=== PATIENT | female | born 1950 | race Caucasian/White ===

== ENCOUNTER 2024-09-16 16:11 | Inpatient (IN) | payer MEDICARE, MEDICAID ==
[~2024-09-16] VITALS: Ht 172.7 cm; Wt 85.1 kg
--- NOTE | 2024-09-16 16:22 | ECG ---
[facility] Test Date: 2024-09-16 Test Time: 16:10:09 Pat Name: BERT STRONG Department: ED Room: [address] [place] [address] Gender: F [employer] Set Up Operator: gp : 1950 Requested By: ROMI TA Order Number: [id number] Reading MD: Alec Lamas Measurements Intervals [place] Rate: 54 P: 50 FL: 163 QRS: 16 QRSD: 108 T: 128 QT: 426 QTc: 404 Interpretive Statements Sinus rhythm Repol abnrm suggests ischemia, lateral leads Baseline wander in lead(s) II,III,aVR,aVF,V1,V2,V3,V4,V5,V6 Electronically Signed On 09-16-2024 21:05:55 PDT by Alec Lamas Please click the below link to view image of tracing.
--- NOTE | 2024-09-16 16:31 | ED.PDOC ---
HPI (NEURO) HPI Comments 74y F who presents to the ED via EMS for chief complaint of confusion. Per EMS, pt is resident at [facility] and states pt has been having increasing confusion at facility over the past 2 days. Pt has been having difficultly with activities of daily living and EMS noted pt had labs 1 days prior which showed UTI for which she was placed on antibiotics. Pt continued to be in altered state and EMS was called. EMS upon arrival noted pt is [id number] and pt was placed on 2 L via nc due to low 02 saturation. Pt has history of CVA with R sided deficits. Pt now in the ED, otherwise denies chest pain, shortness of breath, fever, chills, headache, nausea, vomiting or dizziness. Pt otherwise denies any other symptoms at this time. Time Seen by MD: 16:27 Reviewed Notes: Nurses Notes, Telemetry Nurse Notes, Medications, Allergies (NKDA) Information Source: Patient, Emergency Med Personnel Mode of Arrival: EMS Brought in by: EMS Severity: Moderate Dizziness/Weakness Severity: Unable to do activities Headache Severity: None Timing: Hours Duration: Since onset Prehospital treatment: Oxygen Weakness Location: Generalized Onset: At rest Circumstances: Spontaneous Symptoms: Weakness History of: CVA, DM, Hypertension Modifying factors: Nothing Associated Signs and Symptoms: Weakness Past Medical History PAST MEDICAL HISTORY: COPD, CVA, DM, HTN Surgical History: Cholecystectomy, Hernia Repair [employer]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 Hx Family History Family History: Reviewed,noncontributory to illness Social History Smoker: Non-Smoker Alcohol: Denies ETOH Use Drugs: Denies Drug Use Lives In: [facility] Constitutional: reports: malaise, weakness; denies: chills, diaphoresis, fatigue, fever, sweats, others EENTM: denies: blurred vision, double vision, ear bleeding, ear discharge, ear drainage, ear pain, ear ringing, eye pain, eye redness, hearing loss, mouth pain, mouth swelling, nasal discharge, nose bleeding, nose congestion, nose pain, photophobia, tearing, throat pain, throat swelling, voice changes, others Respiratory: denies: cough, hemoptysis, orthopnea, SOB at rest, shortness of breath, SOB with excertion, stridor, wheezing, others Cardiovascular: denies: chest pain, dizzy spells, diaphoresis, Dyspnea on exertion, edema, irregular heart beat, left arm pain, lightheadedness, pal pitations, PND, syncope, others Gastrointestinal: denies: abdomen distended, abdominal pain, blood streaked bowels, constipated, diarrhea, dysphagia, difficulty swallowing, hematemesis, melena, nausea, poor appetite, poor fluid intake, rectal bleeding, rectal pain, vomiting, others Genitourinary: denies: abnormal vagina bleeding, burning, dyspareunia, dysuria, flank pain, frequency, hematuria, incontinence, pain, , vagina discharge, urgency, others Neurological: denies: dizziness, fainting, headache, left sided numbness, left sided weakness, numbness, paresthesia, pre-existing deficit, right sided numbness, right sided weakness, seizure, speech problems, tingling, tremors, weakness, others Musculoskeletal: denies: back pain, gout, joint pain, joint swelling, muscle pain, muscle stiffness, neck pain, others Integumetry: denies: bruises, change in color, change in hair/nails, dryness, laceration, lesions, lumps, rash, wounds, others Allergic/Immunocompromised: denies: Difficulty Healing, Frequent Infections, Hives, Itching, others Hematologic/Lymphatic: denies: anemia, blood clots, easy bleeding, easy b ruising, swollen glands, others Endocrine: denies: excessive hunger, excessive sweating, excessive thirst, excessive urination, flushing, intolerance to cold, intolerance to heat, unexplained weight gain, unexplained weight loss, others Psychiatric: denies: anxiety, bipolar disorder, depression, hopeless, panic disorder, schizophrenia, sleepless, suicidal, others All Other Systems: Reviewed and Negative Physical Exam General Appearance: Moderate Distress HEENT: Normal ENT Inspection, Pharynx Normal, TMs Normal Neck: Full Range of Motion, Non-Tender, Normal, Normal Inspection Respiratory: Chest Non-Tender, Lungs Clear, No Accessory Muscle Use, Normal Breath Sounds, Respiratory Distress Cardiovascular: No Edema, No JVD, No Murmur, No Gallop, Normal Peripheral Pulses, Regular Rate/Rhythm Breast Exam: Deferred Gastrointestinal: No Organomegaly, Non Tender, No Pulsatile Mass, Normal Bowel Sounds, Soft Genitalia: Deferred Pelvic: Deferred Rectal: Deferred Extremities: No calf tenderness, Normal capillary refill, No pedal edema Musculoskeletal : Apperance: Normal Neurologic: experience specialist II-XII nml as Tested, Motor Weakness, Normal Affect, Normal Mood, No Sensory Deficits, Other (Lethargic) Cerebellar Function: Normal Reflexes: Normal Skin: Dry, Pallor, Warm Lymphatic: No Adenopathy EKG EKG : Pulse Rate (adult): 54 [place]: Normal Cardiac Rhythm: NSR Block: None Hypertrophy: None ST: Normal Was a procedure done? Was a procedure done?: No Differential Diagnosis (SZ) Seizure: N/A General Weakness: Anemia, CVA, Dehydration, Electrolyte imbalance, Encephalopathy, Hypoglycemia, Hypotension, TIA, Other (UTI, urosepsis) X-Ray, Labs, Meds, VS Vital Signs Date Time Temp Pulse Resp B/P (MAP) Pulse Ox O2 Delivery O2 Flow Rate FiO2 09/16/24 18:00 54 11 142/56 (84) 97 09/16/24 17:10 57 09/16/24 16:48 95 Nasal Cannula* 2 28 09/16/24 16:48 98.3 60 16 144/62 (89) 95 98.3 09/16/24 16:31 54 09/16/24 16:23 97.1 56 16 148/64 (92) 93 97.1 09/16/24 16:11 54 Lab Test 09/16/24 19:00 09/16/24 16:53 Range/Units Urine Color Yellow Yellow Urine Clarity Turbid H Clear Urine pH 5.5 5.0-9.0 Urine Specific [place] 1.026 1.001-1.035 Urine Protein Trace H Negative Urine Ketones Negative Negative Urine Blood Negative Negative /uL Urine Nitrite Negative Negative Urine Bilirubin Negative Negative Urine Urobilinogen Normal Negative mg/dL Urine Leukocyte Esterase 3+ Negative /uL Urine RBC 6 0 - 4 /hpf Urine Microscopic WBC 86 H 0-5 /HPF Urine Squamous Epithelial Cells Few <5 /hpf Urine Bacteria Many H None Seen /hpf Urine Hyaline Casts Few 0 - 2 /lpf Urine Glucose Normal Normal mg/dL White Blood Count 10.3 4.4-10.8 10^3/uL Red Blood Count 4.83 4.0-5.20 10^6/uL Hemoglobin 14.7 12.2-16.2 g/dL Hematocrit 44.4 36.0-46.0 % Mean Corpuscular Volume 91.9 80.0-100.0 fL Mean Corpuscular Hemoglobin 30.3 28.0-32.0 pg Mean Corpuscular Hemoglobin Concent 33.0 32.0-36.0 g/dL Red Cell Distribution Width 13.3 11.8-14.3 % Platelet Count 354 140-450 10^3/uL Mean Platelet Volume 8.0 6.9-10.8 fL Neutrophils (%) (Auto) 63.6 37.0-80.0 % Lymphocytes (%) (Auto) 26.2 10.0-50.0 % Monocytes (%) (Auto) 6.6 0.0-12.0 % Eosinophils (%) (Auto) 2.8 0.0-7.0 % Basophils (%) (Auto) 0.8 0.0-2.0 % Neutrophils # (Auto) 6.6 1.6-8.6 10 ^3/uL Lymphocytes # (Auto) 2.7 0.4-5.4 10 ^3/uL Monocytes # (Auto) 0.7 0-1.3 10 ^3/uL Eosinophils # (Auto) 0.3 0-0.8 10 ^3/uL Basophils # (Auto) 0.1 0-0.2 10 ^3/uL Nucleated Red Blood Cells 0.2 % D-Dimer, Quantitative Pending Sodium Level 142 136-145 mmol/L Potassium Level 4.0 3.5-5.1 mmol/L Chloride Level 107 98-107 mmol/L Carbon Dioxide Level 27 20-31 mmol/L Anion Gap 8 5-15 Blood Urea Nitrogen 29 H 9-23 mg/dL Creatinine 1.17 H 0.550-1.02 mg/dL Glomerular Filtration Rate Calc 49 >90 mL/min BUN/Creatinine Ratio 24.8 H 10.0-20.0 Serum Glucose 106 74-106 mg/dL Lactic Acid Level 0.8 0.4-2.0 mmol/L Calcium Level 10.0 8.7-10.4 mg/dL Total Bilirubin 0.2 0.2-1.0 mg/dL Aspartate Amino Transferase (AST) 12 L 13-40 U/L Alanine Aminotransferase (ALT) < 9 7-40 U/L Alkaline Phosphatase 80 46-116 U/L Total Protein 8.0 5.7-8.2 g/dL Albumin 4.4 3.2-4.8 g/dL Current Medications Medications (Trade) Dose Ordered Sig/Manasa Route Start Time Stop Time Status Last Admin Sodium Chloride 500 ml @ 500 mls/hr Q1H ONCE IVB 09/16/24 16:30 09/16/24 17:29 DC 09/16/24 18:14 TECHNIQUE: Frontal view of the chest. IMPRESSION: 1. No evidence of acute disease. The patient's CBC is within normal limits The chemistry panel is within normal limits The urine test is positive for UTI The patient is being admitted to the hospitalist Levaquin is being ordered IV piggyback We feel that this patient's altered mental status could be secondary to the UTI The patient was admitted Images Reviewed?: Images reviewed and evaluated by me Time of 1ST Reevaluation: 17:00 Reevaluation 1ST: Unchanged Patient Education/Counseling: Diagnosis, Treatment, Prognosis Family Education/Counseling: No Family Present Departure 1 Departure Time of Disposition: 21:02 Impression: Primary Impression: Sepsis secondary to UTI Additional Impression: Generalized weakness Disposition: ADMITTED INPATIENT Admit to: [facility] Condition: Fair Critical Care Note Critical Care Time?: No Stability Stability form required: Yes Unstable for transfer: Telemetry monitoring (Telemetry monitoring required), ED Physician Assesment (Clinical assesment) Heart Score Heart Score: Heart Score Response (Comments) Value History N/A 0 EKG N/A 0 Age N/A 0 Risk Factors N/A 0 Troponin N/A 0 Total 0 I personally scribed for ROMI TA MD ([email or web address]) on 09/16/24 at 16:31. Electronically submitted by Melissa Davila ([email or web address]). I personally scribed for ROMI TA MD ([email or web address]) on 09/16/24 at 17:01. Electronically submitted by Melissa Davila (Adelja [email or web address]). ROMI TA MD September 16, 2024 16:31
--- NOTE | 2024-09-16 16:43 | DVH ---
INDICATION: aloc TECHNIQUE: Frontal view of the chest. COMPARISON: None FINDINGS: Finding. The heart and mediastinal contours are grossly unremarkable. There is uncoiling an atheroscl erotic change thoracic aorta There is no evidence of pleural disease. The lungs are clear. The bon y structures of the chest are intact without fracture. IMPRESSION: 1. No evidence of acute disease.
[2024-09-16 16:48] VITALS: O2SAT 95
[2024-09-16 17:34] LABS: Basophils # (auto) 0.1 10 ^3/uL (0-0.2); Basophils % (auto) 0.8 % (0.0-2.0); Eosinophils # (auto) 0.3 10 ^3/uL (0-0.8); Eosinophils % (auto) 2.8 % (0.0-7.0); Hematocrit 44.4 % (36.0-46.0); Hemoglobin 14.7 g/dL (12.2-16.2); Lymphocytes # (auto) 2.7 10 ^3/uL (0.4-5.4); Lymphocytes % (auto) 26.2 % (10.0-50.0); Mean Corpuscular Hemoglobin 30.3 pg (28.0-32.0); Mean Corpuscular Volume 91.9 fL (80.0-100.0); Monocytes # (auto) 0.7 10 ^3/uL (0-1.3); Monocytes % (auto) 6.6 % (0.0-12.0); Neutrophils # (auto) 6.6 10 ^3/uL (1.6-8.6); Neutrophils % (auto) 63.6 % (37.0-80.0); Nucleated Red Blood Cells % 0.2 %; Platelet Count (auto) 354 10^3/uL (140-450); Red Blood Cells 4.83 10^6/uL (4.0-5.20); Red Cell Distribution Width 13.3 % (11.8-14.3); White Blood Cell 10.3 10^3/uL (4.4-10.8)
[2024-09-16 17:38] LABS: Albumin 4.4 g/dL (3.2-4.8); Alkaline Phosphatase 80 U/L (46-116); Anion Gap 8 (5-15); BUN/Creatinine Ratio 24.8 (10.0-20.0); Carbon Dioxide 27 mmol/L (20-31); Chloride 107 mmol/L (98-107); Sodium 142 mmol/L (136-145)
[2024-09-16 18:05] LABS: Alanine Aminotransferase < 9 U/L (7-40); Aspartate Aminotransferase 12 U/L (13-40); Bilirubin, Total 0.2 mg/dL (0.2-1.0); Blood Urea Nitrogen 29 mg/dL (9-23); Glucose 106 mg/dL (74-106)
[2024-09-16] MEDS: SODIUM CHLORIDE 0.9% 500 ML IVB ONE (18:14)
[2024-09-16 19:28] LABS: Urine Bacteria MANY /hpf (None Seen); Urine Blood Negative /uL (Negative); Urine Clarity Turbid (Clear); Urine Color Yellow (Yellow); Urine Hyaline Cast FEW /lpf (0 - 2); Urine Protein, UAD TRACE (Negative); Urine Specific Gravity 1.026 (1.001-1.035); Urine Squamous Epithelial Cell FEW /hpf (<5); Urine Urobilinogen Normal (Negative); Urine WBC 86 /HPF (0-5); Urine pH 5.5 (5.0-9.0)
[2024-09-16] MEDS ORDERED: NITROGLYCERIN 0.4 MG SL TAB SL PRN (19:45)
[2024-09-16] MEDS ORDERED: DOCUSATE SOD 100 MG CAP PO PRN (19:45)
[2024-09-16] MEDS ORDERED: ONDANSETRON HCL 4 MG/2 ML VIAL IV PRN (19:45)
--- NOTE | 2024-09-16 19:51 | DVHHP2 ---
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 Her surgical history includes vascular surgery and hernia repair. She resides at [facility] and was brought to the ED by paramedics due to increased confusion and a decline in her ability to perform activities of daily living over the past two days. Staff at the facility noted hypoxia, prompting transfer. On arrival, the patient was placed on 2 L nasal cannula. She was alert but disoriented during the encounter, with limited recall. She denied chest pain or dyspnea when able to respond. Facility staff reported the presence of a buttocks and upper thigh wound, which was confirmed on physical exam. Initial labs showed a creatinine of 1.17 with BUN 29, unremarkable CBC, and lactate within normal limits. Chest X- ray did not reveal acute pathology. Urinalysis is pending. She will be admitted for further workup of acute encephalopathy and hypoxia Past Medical History see hpi above Past Surgical History see hpi above Family History Reviewed, non-contributory to the management of this case. Past Social History unable to assess d/t mental status Review of Systems Review of Systems unable to assess ros d/r mental state Neurological: Confusion Allergies: Coded Allergies: NO KNOWN ALLERGIES (Unverified , 09/16/24) Exam Vital Signs Vital Signs Date Time Temp Pulse Resp B/P (MAP) Pulse Ox O2 Delivery O2 Flow Rate FiO2 09/16/24 18:00 54 11 142/56 (84) 97 09/16/24 16:48 Nasal Cannula* 2 28 09/16/24 16:48 98.3 98.3 General Appearance: Alert, Other (answer some questions) HEENT: Atraumatic, PERRLA, EOMI, Mucous membr. moist/pink Respiratory: Clear to auscultation, Normal air movement Cardiovascular: Regular rate, Normal S1, Normal S2, No murmurs Abdominal: Other (obsese abd no pain ) Extremities: No clubbing, No cyanosis, No edema Skin: No rashes (pt with wound to buttocks per nursing exam but not able to assess on my exam wound care consult ) Neuro: Other (bedbound ) Labs/Xrays Chest x-ray unremarkable I reviewed labs, imaging CT scan abdomen pelvis, EKG and all diagnostic studies on this patient from ED records and the medical chart Labs Test 09/16/24 19:00 09/16/24 16:53 Range/Units White Blood Count 10.3 4.4-10.8 10^3/uL Red Blood Count 4.83 4.0-5.20 10^6/uL Hemoglobin 14.7 12.2-16.2 g/dL Hematocrit 44.4 36.0-46.0 % Mean Corpuscular Volume 91.9 80.0-100.0 fL Mean Corpuscular Hemoglobin 30.3 28.0-32.0 pg Mean Corpuscular Hemoglobin Concent 33.0 32.0-36.0 g/dL Red Cell Distribution Width 13.3 11.8-14.3 % Platelet Count 354 140-450 10^3/uL Mean Platelet Volume 8.0 6.9-10.8 fL Neutrophils (%) (Auto) 63.6 37.0-80.0 % Lymphocytes (%) (Auto) 26.2 10.0-50.0 % Monocytes (%) (Auto) 6.6 0.0-12.0 % Eosinophils (%) (Auto) 2.8 0.0-7.0 % Basophils (%) (Auto) 0.8 0.0-2.0 % Neutrophils # (Auto) 6.6 1.6-8.6 10 ^3/uL Lymphocytes # (Auto) 2.7 0.4-5.4 10 ^3/uL Monocytes # (Auto) 0.7 0-1.3 10 ^3/uL Eosinophils # (Auto) 0.3 0-0.8 10 ^3/uL Basophils # (Auto) 0.1 0-0.2 10 ^3/uL Nucleated Red Blood Cells 0.2 % Sodium Level 142 136-145 mmol/L Potassium Level 4.0 3.5-5.1 mmol/L Chloride Level 107 98-107 mmol/L Carbon Dioxide Level 27 20-31 mmol/L Anion Gap 8 5-15 Blood Urea Nitrogen 29 H 9-23 mg/dL Creatinine 1.17 H 0.550-1.02 mg/dL Glomerular Filtration Rate Calc 49 >90 mL/min BUN/Creatinine Ratio 24.8 H 10.0-20.0 Serum Glucose 106 74-106 mg/dL Lactic Acid Level 0.8 0.4-2.0 mmol/L Calcium Level 10.0 8.7-10.4 mg/dL Total Bilirubin 0.2 0.2-1.0 mg/dL Aspartate Amino Transferase (AST) 12 L 13-40 U/L Alanine Aminotransferase (ALT) < 9 7-40 U/L Alkaline Phosphatase 80 46-116 U/L Total Protein 8.0 5.7-8.2 g/dL Albumin 4.4 3.2-4.8 g/dL Assessment/Plan Assessment/Plan 74-year-old female with history of CVA and COPD presenting with acute encephalopathy and hypoxia for further diagnostic evaluation and management. Acute hypoxic respiratory failure Likely multifactorial: possible COPD exacerbation, infection, or deconditioning Plan: Continue O2 via nasal cannula to maintain sats >92% Chest X-ray: no infiltrate or consolidation D-dimer ordered to assess for PE Consider CT angiogram chest if elevated Monitor oxygen requirements and respiratory status ordered duoneb prn Acute encephalopathy metabolic New-onset confusion over past two days No focal neurologic deficits currently Plan: Monitor mental status daily UA, urine culture pendingpossible infectious source Basic metabolic panel daily to trend electrolytes Consider head CT if mental status worsens ordered antibotics vanco and zosyn for now acute Buttocks and thigh wound likely early pressure injury/cellulitis Wound noted to buttocks and upper thigh Plan: Wound care consult ordered Daily wound assessment and dressing changes Consider empiric antibiotics if signs of cellulitis progress Monitor for fever, leukocytosis ordered vanco and zosyn for now acute History of CVA with right-sided weakness Chronic condition, currently at baseline Plan: Fall precautions in place Monitor for new neurologic deficits chronic problems COPD Diabetes Mellitus Type 2 ISS Hypertension FEN/PPx Fluids: IV hydration with NS at maintenance rate Nutrition: Regular diet as tolerated DVT Prophylaxis: SCDs; pharmacologic if no contraindication GI Prophylaxis: Pantoprazole 40 mg IV daily for stress ulcer prevention plan admit to medicine Plan discussed with: Other (ed records ) My Orders Orders - KEYON DUNCAN DNP Procedure Category Date Status Time Regular Diet DIET 09/17/24 Transmitted Breakfast * Wound Consult CONS 09/16/24 Transmitted Insert Ross Catheter WAN 09/16/24 In Process 19:13 Date of Service: September 16, 2024 Billing Provider: KEYON DUNCAN DNP Common Visit Codes: [id number] INP/OBS CARE (HIGH) KEYON DUNCAN DNP September 16, 2024 19:51
[2024-09-16 20:00] VITALS: PULSE 57; RESP 13; O2SAT 96
[2024-09-16] MEDS ORDERED: VANCOMYCIN PER PHARMACY 0 MG IV SCH (20:15)
[2024-09-16] MEDS: PIPERACILLIN-TAZOB 3.375GM 100 ML IV ONE (20:21)
[2024-09-16] MEDS ORDERED: ALBUTEROL SULF 2.5 MG/0.5ML(0.5%) NEB SOLN NEB PRN (20:45)
[2024-09-16] MEDS ORDERED: IPRATROPIUM BROM 0.5 MG/2.5ML INH SOL NEB PRN (20:45)
[2024-09-16 21:22] VITALS: BP 133/42; PULSE 56; RESP 14; TEMP 98.4; O2SAT 96
[2024-09-17] VITALS (12 sets, daily range): BP systolic 117–151; BP diastolic 46–68; PULSE 56–78; RESP 17–19; TEMP 97.2–97.9; O2SAT 96–100
[2024-09-17] MEDS: MORPHINE SULFATE INJ 2 MG/ml SYRG IV PRN (00:24)
[2024-09-17] MEDS: SODIUM CHLORIDE 0.9% 1,000 ML IV SCH (00:24)
[2024-09-17] MEDS: VANCOMYCIN 1GM/200ML PM 200 ML IV ONE (00:24)
[2024-09-17] MEDS ORDERED: METF-370 PO (01:58)
[2024-09-17] MEDS ORDERED: POTA-215 PO (01:58)
[2024-09-17] MEDS ORDERED: HYDR-4902 PO (01:58)
[2024-09-17] MEDS ORDERED: SERT25TA84 PO (01:58)
[2024-09-17] MEDS ORDERED: AMLO1TAB22 PO (01:58)
[2024-09-17] MEDS ORDERED: ASPI-543 PO (01:58)
[2024-09-17] MEDS ORDERED: DIPH2.5T73 PO (02:21)
[2024-09-17] MEDS: PIPERACILLIN-TAZOB 3.375GM 100 ML IV SCH (05:29)
[2024-09-17 06:12] LABS: Basophils # (auto) 0.1 10 ^3/uL (0-0.2); Basophils % (auto) 0.6 % (0.0-2.0); Eosinophils # (auto) 0.3 10 ^3/uL (0-0.8); Eosinophils % (auto) 2.9 % (0.0-7.0); Hemoglobin 12.8 g/dL (12.2-16.2); Lymphocytes # (auto) 2.1 10 ^3/uL (0.4-5.4); Lymphocytes % (auto) 21.4 % (10.0-50.0); Mean Corpuscular Hemoglobin 30.1 pg (28.0-32.0); Mean Corpuscular Hgb Conc. 32.8 g/dL (32.0-36.0); Mean Corpuscular Volume 91.8 fL (80.0-100.0); Monocytes # (auto) 0.7 10 ^3/uL (0-1.3); Monocytes % (auto) 7.2 % (0.0-12.0); Neutrophils # (auto) 6.7 10 ^3/uL (1.6-8.6); Neutrophils % (auto) 67.9 % (37.0-80.0); Nucleated Red Blood Cells % 0.1 %; Platelet Count (auto) 275 10^3/uL (140-450); Red Blood Cells 4.25 10^6/uL (4.0-5.20); Red Cell Distribution Width 13.5 % (11.8-14.3); White Blood Cell 9.9 10^3/uL (4.4-10.8)
[2024-09-17 06:23] LABS: Albumin 3.4 g/dL (3.2-4.8); Alkaline Phosphatase 60 U/L (46-116); Anion Gap 11 (5-15); BUN/Creatinine Ratio 22.8 (10.0-20.0); Blood Urea Nitrogen 21 mg/dL (9-23); Carbon Dioxide 21 mmol/L (20-31); Glucose 95 mg/dL (74-106); Total Protein 6.1 g/dL (5.7-8.2)
[2024-09-17 06:40] LABS: Alanine Aminotransferase < 9 U/L (7-40); Aspartate Aminotransferase < 8 U/L (13-40); Bilirubin, Total 0.3 mg/dL (0.2-1.0); Calcium 7.7 mg/dL (8.7-10.4); Chloride 113 mmol/L (98-107); Potassium 3.5 mmol/L (3.5-5.1); Sodium 145 mmol/L (136-145)
--- NOTE | 2024-09-17 13:48 | DVHPNRES ---
Progress Note Date Seen: September 17, 2024 Resident Creating Document: JOVAN SALAZAR RESIDENT Medical Necessity Reason Pt with a Central, PICC or Fol: No Subjective Review of Systems patient seen and examined at beside generalized weak alert oriented rightsided weakness ? residual no fever Objective vital signs Vital Sign Date Time Temp Pulse Resp B/P (MAP) Pulse Ox O2 Delivery O2 Flow Rate FiO2 09/17/24 13:14 97.9 62 17 117/46 (69) 97 97.9 09/17/24 10:00 Nasal Cannula 2.0 09/17/24 10:00 28 Total Intake and Output 09/16/24 09/16/24 09/17/24 15:00 23:00 07:00 Intake Total 600 ml 200 ml Output Total 300 ml Balance 600 ml -100 ml medications Current Medications Medications Dose Ordered Sig/Manasa Route Start Time Stop Time Status Last Admin Dose Admin Sodium Chloride 1,000 ml @ 120 mls/hr Q8H20M IV 09/16/24 19:45 09/17/24 12:25 120 MLS/HR Ondansetron HCl 4 mg Q4HP PRN IV 09/16/24 19:45 Docusate Sodium 100 mg BIDPRN PRN PO 09/16/24 19:45 Morphine Sulfate 2 mg Q4HPRN PRN IV 09/16/24 19:45 09/17/24 00:24 2 MG Nitroglycerin 0.4 mg Q5MINP PRN SL 09/16/24 19:45 Vancomycin HCl 0 ml @ 0 mls/hr UD IV 09/16/24 20:15 Piperacillin Sod/ Tazobactam Sod 100 ml @ 25 mls/hr Q8HR IV 09/17/24 06:00 09/17/24 05:29 25 MLS/HR Albuterol 2.5 mg Q4HPRN PRN NEB 09/16/24 20:45 Ipratropium Gilead 0.5 mg Q4HPRN PRN NEB 09/16/24 20:45 Examination General: Patient alert and oriented in person, place and time. Bed-bound HEENT: Normocephalic, atraumatic, moist mucous membranes Respiratory/pulmonary: Clear lungs bilaterally, vesicular murmurs present in almost all lung [place], no associated crackles or wheezes. Cardiovascular: Normal heart sounds S1 and S2 with no associated murmurs Abdomen: Abdomen nondistended, there is no pain to palpation in any of the abdominal quadrants, no palpable masses. Extremities: There is no peripheral edema present at the lower extremities. Peripheral Pulses: 3+ Radial (R). 3+ Radial (L). 3+ Dorsalis pedis (R). 3+ Dorsalis pedis(L) Skin: No rashes or pruritus, there is no sacral edema present at this time. Neurological: Intact cranial nerves with right-sided residual weakness, one out of five, left-sided weakness upper and lower extremity, 3/5. laboratory and microbiology Laboratory Tests 09/17/24 04:32 Test 09/17/24 04:32 Range/Units Serum Glucose 95 74-106 mg/dL Problem List/Assessment/Plan Problem List/Assessment/Plan UTI Acute metabolic encephalopathy due to above Acute on chronic hypoxic respiratory failure COPD, not exacerbation Diabetes mellitus type 2 Hypertension Deep tissue injury History of CVA, right-sided residual weakness Plan/recommendation -IV antibiotic ceftriaxone, pending urine culture, blood culture, respiratory culture. -chest x-ray no consolidation, continue nasal cannula 2 L, p.r.n. albuterol/ipratropium bromide nebulization if needed -head CT pending results -generalized weakness, dizziness: Pending B12, folic acid, TSH, vitamin-D day level. -hypertension: Resume home medication amlodipine -diabetes mellitus type 2: Pending HGB A1c -history of CVA: Pending CT scan, continue aspirin 81 mg p.o. daily -review CBC, CMP, urinalysis, chest x-ray. -DVT prophylaxis with enoxaparin Goals of care , discussed greater than 24 m, full code status. Plan discussed with Dr Christianson Plan discussed with: Patient, Other (RN) My Orders My Orders Orders - JOVAN SALAZAR RESIDENT Procedure Category Date Status Time Urine Bacterial BEENA 09/17/24 Logged Culture 13:39 Ceftriaxone Ivpb PHA 09/18/24 Transmitted Rocephin 09:00 Date of Service: September 17, 2024 Billing Provider: YAYA CHRISTIANSON MD Common Visit Codes: [id number] INP/OBS CARE(HIGH) JOVAN SALAZAR September 17, 2024 13:48 YAYA CHRISTIANSON MD September 18, 2024 15:41
[2024-09-17] MEDS ORDERED: ENOXAPARIN SOD 30 MG/0.3 ML SYRINGE SC ONE (15:30)
--- NOTE | 2024-09-17 16:48 | DVH ---
Procedure: CT HEAD WITHOUT CONTRAST Study Date and Requested Time: 09/17/2024 04:00 PM History: h/O CVA Comparison: None Dose: CTDI: 54.46 mGy DLP: 964.44 mGycm Technique: Multiplanar images obtained through the brain without intravenous contrast. Findings: Moderate diffuse brain atrophy. Mild to moderate chronic small vessel ischemic changes. Left-sided fr ontotemporal craniotomy. Status post left sided cavernous aneurysmal clipping with streak artifact fr om the aneurysmal clip limiting evaluation of the adjacent structures. Right parietal lobe hypodensity which may represent an area of infarct of unknown chronicity. There i s left anterior temporal lobe hypodensity which may represent an area of encephalomalacia. No hemor rhages, midline shift, or herniation. No evidence of hydrocephalus. The basal cisterns are patent. The pituitary gland, sella and parasellar regions are unremarkable. The cerebellar tonsils are in nor mal position. The cerebellum is unremarkable. The orbits and globes are unremarkable. Mild mucoperiosteal thickening of the maxillary sinuses. Oth erwise, the paranasal sinuses and mastoids are clear. There are no worrisome calvarial lesions. Impression: Right parietal lobe hypodensity which may represent an area of infarct of unknown chronicity with no prior imaging for comparison. Left anterior temporal lobe hypodensity which may represent an area of encephalomalacia status post l eft frontotemporal craniotomy with left sided cavernous region aneurysmal clip noted.
[2024-09-17] MEDS: ASPirin 81 mg TAB PO ONE (17:23)
[2024-09-17] MEDS: SERTRALINE HCL 50 MG TAB PO ONE (17:23)
[2024-09-17] MEDS: ENOXAPARIN SOD 40 MG/0.4 ML SYRINGE SC ONE (17:25)
[2024-09-17 17:47] LABS: Folate (Folic Acid) 9.61 ng/mL (>5.38)
[2024-09-18] VITALS (11 sets, daily range): BP systolic 109–160; BP diastolic 62–70; PULSE 70–80; RESP 14–20; TEMP 97.3–98; O2SAT 95–99
[2024-09-18 07:21] LABS: Basophils # (auto) 0.1 10 ^3/uL (0-0.2); Basophils % (auto) 0.7 % (0.0-2.0); Eosinophils # (auto) 0.4 10 ^3/uL (0-0.8); Eosinophils % (auto) 5.3 % (0.0-7.0); Hematocrit 38.5 % (36.0-46.0); Hemoglobin 12.7 g/dL (12.2-16.2); Lymphocytes % (auto) 23.8 % (10.0-50.0); Mean Corpuscular Hemoglobin 30.1 pg (28.0-32.0); Mean Corpuscular Volume 91.2 fL (80.0-100.0); Monocytes # (auto) 0.6 10 ^3/uL (0-1.3); Monocytes % (auto) 7.8 % (0.0-12.0); Neutrophils # (auto) 5.1 10 ^3/uL (1.6-8.6); Neutrophils % (auto) 62.4 % (37.0-80.0); Platelet Count (auto) 291 10^3/uL (140-450); Red Blood Cells 4.22 10^6/uL (4.0-5.20); Red Cell Distribution Width 13.2 % (11.8-14.3); White Blood Cell 8.2 10^3/uL (4.4-10.8)
[2024-09-18 07:32] LABS: Anion Gap 10 (5-15); Calcium 9.4 mg/dL (8.7-10.4); Carbon Dioxide 23 mmol/L (20-31); Sodium 144 mmol/L (136-145)
[2024-09-18 07:38] LABS: BUN/Creatinine Ratio 20.8 (10.0-20.0); Blood Urea Nitrogen 20 mg/dL (9-23); Glucose 99 mg/dL (74-106)
[2024-09-18 07:43] LABS: Chloride 111 mmol/L (98-107); Potassium 3.4 mmol/L (3.5-5.1)
[2024-09-18] MEDS: cefTRIAXone 1GM/50ML D5W 50 ML IV SCH (08:48)
[2024-09-18] MEDS: ENOXAPARIN SOD 40 MG/0.4 ML SYRINGE SC SCH (08:48)
[2024-09-18] MEDS: SERTRALINE HCL 50 MG TAB PO SCH (08:49)
[2024-09-18] MEDS: ASPirin-EC 81 mg tab PO SCH (08:49)
[2024-09-18] MEDS: ERGOCALCIFEROL 50,000 UNIT(1.25MG) CAP PO SCH (08:50)
[2024-09-18] MEDS: POTASSIUM EFFERVESENT TAB 25 MEQ PO ONE (08:50)
[2024-09-18] MEDS: amLODIPine BESYLATE 5 MG TAB PO SCH (08:51)
[2024-09-18] MEDS ORDERED: ENOXAPARIN SOD 30 MG/0.3 ML SYRINGE SC SCH (10:00)
--- NOTE | 2024-09-18 13:50 | DVHPNRES ---
Progress Note Date Seen: September 18, 2024 Resident Creating Document: JOVAN SALAZAR RESIDENT Medical Necessity Reason Pt with a Central, PICC or Fol: No Subjective Review of Systems patient seen and examined at beside generalized weak alert oriented rightsided weakness residual no fever 09/18/24: NO new comlains, bed bound, no fever, pending PT evaluation, pending social evaluation,, no diarrhea. 1 BM yesterday. Objective vital signs Vital Sign Date Time Temp Pulse Resp B/P (MAP) Pulse Ox O2 Delivery O2 Flow Rate FiO2 09/18/24 10:20 99 16 160/64 09/18/24 09:00 97.6 95 97.6 09/18/24 08:13 Room Air* 0 21 Total Intake and Output 09/17/24 09/17/24 09/18/24 15:00 23:00 07:00 Intake Total 475 ml 1000 ml Output Total 450 ml Balance 475 ml 550 ml medications Current Medications Medications Dose Ordered Sig/Manasa Route Start Time Stop Time Status Last Admin Dose Admin Sodium Chloride 1,000 ml @ 120 mls/hr Q8H20M IV 09/16/24 19:45 09/18/24 05:42 120 MLS/HR Ondansetron HCl 4 mg Q4HP PRN IV 09/16/24 19:45 Docusate Sodium 100 mg BIDPRN PRN PO 09/16/24 19:45 Morphine Sulfate 2 mg Q4HPRN PRN IV 09/16/24 19:45 09/18/24 09:50 2 MG Nitroglycerin 0.4 mg Q5MINP PRN SL 09/16/24 19:45 Albuterol 2.5 mg Q4HPRN PRN NEB 09/16/24 20:45 Ipratropium [place] 0.5 mg Q4HPRN PRN NEB 09/16/24 20:45 Ceftriaxone Sodium 50 ml @ 100 mls/hr DAILY@09 IV 09/18/24 09:00 09/18/24 08:48 100 MLS/HR Enoxaparin Sodium 30 mg DAILY SC 09/18/24 10:00 UNV Enoxaparin Sodium 40 mg DAILY SC 09/18/24 10:00 09/18/24 08:48 40 MG Amlodipine Besylate 5 mg DAILY PO 09/18/24 10:00 09/18/24 08:51 5 MG Aspirin 81 mg DAILY PO 09/18/24 10:00 09/18/24 08:49 81 MG Sertraline HCl 25 mg DAILY PO 09/18/24 10:00 09/18/24 08:49 25 MG Ergocalciferol 50,000 unit Q7D PO 09/18/24 08:30 09/18/24 08:50 50,000 UNIT Examination General: Patient alert and oriented in person, place and time. Bed-bound HEENT: Normocephalic, atraumatic, moist mucous membranes Respiratory/pulmonary: Clear lungs bilaterally, vesicular murmurs present in almost all lung de la torre, no associated crackles or wheezes. Cardiovascular: Normal heart sounds S1 and S2 with no associated murmurs Abdomen: Abdomen nondistended, there is no pain to palpation in any of the abdominal quadrants, no palpable masses. Extremities: There is no peripheral edema present at the lower extremities. Peripheral Pulses: 3+ Radial (R). 3+ Radial (L). 3+ Dorsalis pedis (R). 3+ Dorsalis pedis(L) Skin: No rashes or pruritus, there is no sacral edema present at this time. Neurological: Intact cranial nerves with right-sided residual weakness, one out of five, left-sided weakness upper and lower extremity, 3/5. laboratory and microbiology Laboratory Tests 09/18/24 05:58 Test 09/18/24 05:58 Range/Units Serum Glucose 99 74-106 mg/dL Microbiology Date/Time Source Procedure Growth Status 09/17/24 18:32 Nose MRSA Screen - Final Complete 09/16/24 19:00 Voided Urine Urine Culture - Preliminary Resulted 09/16/24 16:53 Blood Blood Culture - Preliminary NO GROWTH AFTER 24 HOURS OF INCUBATION. Resulted Problem List/Assessment/Plan Problem List/Assessment/Plan UTI Acute metabolic encephalopathy due to above Acute on chronic hypoxic respiratory failure COPD, not exacerbation Diabetes mellitus type 2 Hypertension Deep tissue injury History of CVA, right-sided residual weakness Plan/recommendation -IV antibiotic ceftriaxone, culture negative till now -chest x-ray no consolidation, continue nasal cannula 2 L, p.r.n. albuterol/ipratropium bromide nebulization if needed -head CT : no acute intra cranial abnormality -generalized weakness, dizziness: rolf vitamin d -hypertension: Resume home medication amlodipine -history of CVA: continue aspirin 81 mg p.o. daily -review CBC, CMP, urinalysis, chest x-ray. -DVT prophylaxis with enoxaparin Goals of care , discussed greater than 24 m, full code status. Continue current management, pending PT evaluation, pending treated service evaluation for DC planning. As per medical record patient resides at [facility], we will need DC planning for discharge disposition. Plan discussed with Dr Christianson Plan discussed with: Patient, Other (RN) My Orders My Orders Orders - JOVAN SALAZAR Procedure Category Date Status Time Head Without Contrast CT 09/17/24 Resulted 15:18 Enoxaparin Sodium PHA 09/18/24 In Process (Lovenox) 10:00 Amlodipine Tablet PHA 09/18/24 In Process (Norvasc Tablet) 10:00 Aspirin Enteric PHA 09/18/24 In Process Coated Tablet 10:00 Sertraline Hcl PHA 09/18/24 In Process (Zoloft) 10:00 * Bridge Maintainer CONS 09/17/24 Transmitted Consult Pt Request For Service PT 09/17/24 Logged 16:38 Cleanse Wound With WAN 09/17/24 In Process Wound Clean 14:45 Apply Z-Guard WAN 09/17/24 In Process 14:45 * Dietary Consult CONS 09/17/24 Transmitted 18:48 Ergocalciferol PHA 09/18/24 In Process (Vitamin D 50,000 08:30 Dietary Evaluation Review Recommendations by RD: Protein Supplementation Comments: 1) Initiate Pro-Stat @ 30 mL qd 2) Initaite Ensure Enlive bid. Encourage optimal PO intake 3) Initiate vitamin C @ 500 mg bid and zinc sulfate @ 220 mg qd for 7-10 days 4) Follow-up with pulmonology and cardiology 4) Continue to monitor I&O, labs, and skin integrity Expected Outcomes/Goals: 1) appetite and labs to improve 2) wound to improve 3) follow-up in 3-5 days Date of Service: September 18, 2024 Billing Provider: YAYA CHRISTIANSON MD Common Visit Codes: [id number] INP/OBS CARE(HIGH) JOVAN SALAZAR September 18, 2024 13:49 YAYA CHRISTIANSON MD September 18, 2024 15:48
[2024-09-18] MEDS: MELATONIN 5 MG TAB PO SCH (22:02)
[2024-09-19] VITALS (10 sets, daily range): BP systolic 127–164; BP diastolic 55–77; PULSE 68–89; RESP 16–18; TEMP 97.3–98.1; O2SAT 92–98
[2024-09-19 06:35] LABS: Sodium 143 mmol/L (136-145)
[2024-09-19 06:36] LABS: Anion Gap 9 (5-15); Calcium 9.1 mg/dL (8.7-10.4); Carbon Dioxide 24 mmol/L (20-31)
[2024-09-19 06:41] LABS: BUN/Creatinine Ratio 15.2 (10.0-20.0); Blood Urea Nitrogen 12 mg/dL (9-23); Glucose 105 mg/dL (74-106)
[2024-09-19 06:50] LABS: Chloride 110 mmol/L (98-107)
[2024-09-19] MEDS: POTASSIUM CHL 20 Meq TABLET PO ONE (11:23)
[2024-09-19] MEDS: POTASSIUM EFFERVESENT TAB 25 MEQ PO ONE (11:24)
[2024-09-19] MEDS: HYDROcodone-ACET 5/325MG TAB PO PRN (16:50)
--- NOTE | 2024-09-19 17:38 | DVHPNRES ---
Progress Note Date Seen: September 19, 2024 Resident Creating Document: JHAJMARILU Shearer RESIDENT Medical Necessity Reason Pt with a Central, PICC or Fol: No Subjective Review of Systems patient seen and examined at beside A/O X 4 reports weakness Physical therapy evaluated the patient, she was not able to transfer to chair because of the pain Reported 3 bowel movements No abdominal Pain, nausea, vomiting No chest pain, shortness of breath Objective vital signs Vital Sign Date Time Temp Pulse Resp B/P (MAP) Pulse Ox O2 Delivery O2 Flow Rate FiO2 09/19/24 17:00 97.7 76 18 138/55 (82) 93 97.7 09/19/24 10:00 Nasal Cannula* 2 28 Total Intake and Output 09/18/24 09/18/24 09/19/24 15:00 23:00 07:00 Intake Total 798 ml 1240 ml Output Total 1000 ml 700 ml Balance -202 ml 540 ml medications Current Medications Medications Dose Ordered Sig/Manasa Route Start Time Stop Time Status Last Admin Dose Admin Ondansetron HCl 4 mg Q4HP PRN IV 09/16/24 19:45 Morphine Sulfate 2 mg Q4HPRN PRN IV 09/16/24 19:45 09/19/24 09:27 2 MG Ceftriaxone Sodium 50 ml @ 100 mls/hr DAILY@09 IV 09/18/24 09:00 09/19/24 09:24 100 MLS/HR Enoxaparin Sodium 30 mg DAILY SC 09/18/24 10:00 UNV Enoxaparin Sodium 40 mg DAILY SC 09/18/24 10:00 09/19/24 09:26 40 MG Amlodipine Besylate 5 mg DAILY PO 09/18/24 10:00 09/19/24 09:25 5 MG Aspirin 81 mg DAILY PO 09/18/24 10:00 09/19/24 09:26 81 MG Sertraline HCl 25 mg DAILY PO 09/18/24 10:00 09/19/24 09:25 25 MG Ergocalciferol 50,000 unit Q7D PO 09/18/24 08:30 09/18/24 08:50 50,000 UNIT Melatonin 5 mg HS PO 09/18/24 22:00 09/18/24 22:02 5 MG Acetaminophen/ Hydrocodone Bitart 1 tab Q4HPRN PRN PO 09/19/24 11:00 09/19/24 16:50 1 TAB Examination Constitutional: Patient is alert and oriented x4 and does not appear to be in any acute distress Gen - no pallor, no icterus, no cyanosis, no clubbing, no LAD, no edema . Skin - Patients skin is warm and dry.. HEENT - normocephalic, atraumatic, moist mucous membranes. Neck - full ROM, no LAD, no JVD Pulmonary - B/L equal breath sounds. no crackles , no wheezing cardiovascular - regular S1,S2 heard. no murmurs heard. GI - soft, nontender abdomen. no hepatospleenomegaly. Bowel sounds normoactive Neurological - left upper and lower extremity strength 4/5, right lower extremity strength 4/5, right upper extremity strength 3/5 no facial droop, normal speech, no tremor, no sensory deficiets. laboratory and microbiology Laboratory Tests 09/19/24 04:56 09/18/24 05:58 Test 09/19/24 04:56 Range/Units Serum Glucose 105 74-106 mg/dL Microbiology Date/Time Source Procedure Growth Status 09/17/24 18:32 Nose MRSA Screen - Final Complete 09/16/24 19:00 Voided Urine Urine Culture - Final Complete 09/16/24 16:53 Blood Blood Culture - Preliminary NO GROWTH AFTER 72 HOURS OF INCUBATION. Resulted Problem List/Assessment/Plan Problem List/Assessment/Plan UTI Acute metabolic encephalopathy due to above, resolving Acute on chronic hypoxic respiratory failure COPD, not exacerbation Diabetes mellitus type 2 Hypertension Deep tissue injury History of CVA, right-sided residual weakness Plan/recommendation -IV antibiotic ceftriaxone, culture negative till now -chest x-ray no consolidation, continue nasal cannula 2 L, p.r.n. albuterol/ipratropium bromide nebulization if needed -head CT : no acute intra cranial abnormality -hypertension: Resume home medication amlodipine -history of CVA: continue aspirin 81 mg p.o. daily -review CBC, CMP, urinalysis, chest x-ray. -DVT prophylaxis with enoxaparin Goals of care , discussed greater than 24 m, full code status. As per medical record patient resides at [facility], we will need DC planning for discharge disposition. Plan discussed with Dr Robert Thao discussed with: Patient, Other (RN ( Monika )) My Orders My Orders Orders - MARILU MARTINEZ RESIDENT Procedure Category Date Status Time Hydrocodone-Acet PHA 09/19/24 In Process 5/325mg Tab ([place] 11:00 Dietary Evaluation Review Recommendations by RD: Protein Supplementation Comments: 1) Initiate Pro-Stat @ 30 mL qd 2) Initaite Ensure Enlive bid. Encourage optimal PO intake 3) Initiate vitamin C @ 500 mg bid and zinc sulfate @ 220 mg qd for 7-10 days 4) Follow-up with pulmonology and cardiology 4) Continue to monitor I&O, labs, and skin integrity Expected Outcomes/Goals: 1) appetite and labs to improve 2) wound to improve 3) follow-up in 3-5 days Date of Service: September 19, 2024 Billing Provider: YAYA CHRISTIANSON MD Common Visit Codes: [id number] INP/OBS CARE(HIGH) MARILU MARTINEZ RESIDENT September 19, 2024 17:38 YAYA CHRISTIANSON MD September 20, 2024 14:15
[2024-09-19] MEDS: MAGNESIUM OXIDE 400 MG TAB PO ONE (20:24)
[2024-09-19] MEDS: LOSARTAN POTASSIUM 25 MG TAB PO ONE (20:31)
[2024-09-19] MEDS: HYDROmorphone HCL 2 MG/ML VL/or syr IV PRN (22:13)
[2024-09-20] VITALS (10 sets, daily range): BP systolic 139–168; BP diastolic 59–77; PULSE 66–79; RESP 14–16; TEMP 97.4–98.8; O2SAT 92–98
--- NOTE | 2024-09-20 05:06 | DVH ---
CLINICAL INDICATION: lower back pain TECHNIQUE: CT of the lumbar spine was performed without intravenous contrast. Sagittal and coronal re formatted images are provided. All CT scans at this medical facility are performed using dose modula tion techniques as appropriate to a performed exam including the following: Automated exposure contro l was utilized; adjustment of the MA and/or KV according to patient size; and use of iterative recons truction technique. COMPARISON: None CT Dose: CTDI volume is 38.94 mGy. Dose-length product is 1395.7 mGy*cm FINDINGS: The alignment of the lumbar spine is maintained. There is levocurvature of the lumbar spine with the apex centered at L2-L3. Moderate age-indeterminate L4 compression deformity. There is 20% vertebral body height loss. No osseous retropulsion. Age-indeterminate T12 compression deformity with about 10% vertebral body height loss. No osseous retropulsion. The intervertebral disc spaces are maintained. There is no evidence of spinal canal or neural foraminal stenosis. The prevertebral soft tissues are unremarkable. Paraspinal muscles are also within normal limits. Atherosclerotic calcifications in the abdominal aorta and its branches. IMPRESSION: 1. Age-indeterminate T12 and L4 compression deformities. No osseous retropulsion.
[2024-09-20 06:27] LABS: Potassium 3.6 mmol/L (3.5-5.1); Sodium 143 mmol/L (136-145)
[2024-09-20 06:28] LABS: Anion Gap 8 (5-15); Calcium 8.9 mg/dL (8.7-10.4); Carbon Dioxide 27 mmol/L (20-31)
[2024-09-20 06:33] LABS: BUN/Creatinine Ratio 11.6 (10.0-20.0); Blood Urea Nitrogen 10 mg/dL (9-23)
[2024-09-20 06:34] LABS: Chloride 108 mmol/L (98-107); Glucose 117 mg/dL (74-106); Magnesium 1.8 mg/dL (1.6-2.6)
[2024-09-20 11:10] LABS: COVID19 ANTIGEN SOFIA FIA NEGATIVE (NEGATIVE)
[2024-09-20] MEDS: LOSARTAN POTASSIUM 50 MG TAB PO ONE (13:16)
--- NOTE | 2024-09-20 17:06 | DVHPNRES ---
Progress Note Date Seen: September 20, 2024 Resident Creating Document: JHMyahJMARILU Shearer RESIDENT Medical Necessity Reason Pt with a Central, PICC or Fol: No Subjective Review of Systems patient seen and examined at beside A/O X 4 reports back pain and that it got worse after working with physical therapy Reported 3 bowel movements yesterday No abdominal Pain, nausea, vomiting No chest pain, shortness of breath Objective vital signs Vital Sign Date Time Temp Pulse Resp B/P (MAP) Pulse Ox O2 Delivery O2 Flow Rate FiO2 09/20/24 13:16 139/71 09/20/24 12:57 97.4 66 14 97 97.4 09/20/24 09:39 Nasal Cannula 2.0 09/20/24 09:39 28 Total Intake and Output 09/19/24 09/19/24 09/20/24 15:00 23:00 07:00 Intake Total 50 ml 455 ml 600 ml Output Total 575 ml 150 ml Balance 50 ml -120 ml 450 ml medications Current Medications Medications Dose Ordered Sig/Manasa Route Start Time Stop Time Status Last Admin Dose Admin Ondansetron HCl 4 mg Q4HP PRN IV 09/16/24 19:45 Ceftriaxone Sodium 50 ml @ 100 mls/hr DAILY@09 IV 09/18/24 09:00 09/20/24 09:16 100 MLS/HR Enoxaparin Sodium 30 mg DAILY SC 09/18/24 10:00 UNV Enoxaparin Sodium 40 mg DAILY SC 09/18/24 10:00 09/20/24 09:17 40 MG Aspirin 81 mg DAILY PO 09/18/24 10:00 09/20/24 09:17 81 MG Sertraline HCl 25 mg DAILY PO 09/18/24 10:00 09/20/24 09:17 25 MG Ergocalciferol 50,000 unit Q7D PO 09/18/24 08:30 09/18/24 08:50 50,000 UNIT Melatonin 5 mg HS PO 09/18/24 22:00 09/19/24 22:10 5 MG Acetaminophen/ Hydrocodone Bitart 1 tab Q4HPRN PRN PO 09/19/24 11:00 09/20/24 12:21 1 TAB Hydromorphone HCl 0.5 mg Q4HPRN PRN IV 09/19/24 22:00 09/20/24 09:20 0.5 MG Amlodipine Besylate 10 mg DAILY PO 09/21/24 10:00 Losartan Potassium 50 mg DAILY PO 09/21/24 10:00 Examination Constitutional: Patient is alert and oriented x4 and does not appear to be in any acute distress Gen - no pallor, no icterus, no cyanosis, no clubbing, no LAD, no edema . Skin - Patients skin is warm and dry.. HEENT - normocephalic, atraumatic, moist mucous membranes. Neck - full ROM, no LAD, no JVD Pulmonary - B/L equal breath sounds. no crackles , no wheezing cardiovascular - regular S1,S2 heard. no murmurs heard. GI - soft, nontender abdomen. no hepatospleenomegaly. Bowel sounds normoactive Neurological - left upper and lower extremity strength 4/5, right lower extremity strength 4/5, right upper extremity strength 3/5 no facial droop, normal speech, no tremor, no sensory deficiets. laboratory and microbiology Laboratory Tests 09/20/24 06:04 09/18/24 05:58 Test 09/20/24 06:04 Range/Units Serum Glucose 117 H 74-106 mg/dL Microbiology Date/Time Source Procedure Growth Status 09/17/24 18:32 Nose MRSA Screen - Final Complete 09/16/24 19:00 Voided Urine Urine Culture - Final Complete 09/16/24 16:53 Blood Blood Culture - Preliminary NO GROWTH AFTER 72 HOURS OF INCUBATION. Resulted Problem List/Assessment/Plan Problem List/Assessment/Plan UTI Acute metabolic encephalopathy due to above, resolving Acute on chronic hypoxic respiratory failure COPD, not exacerbation Diabetes mellitus type 2 Hypertension Deep tissue injury History of CVA, right-sided residual weakness Plan/recommendation -IV antibiotic ceftriaxone, culture negative till now -chest x-ray no consolidation, continue nasal cannula 2 L, p.r.n. albuterol/ipratropium bromide nebulization if needed -head CT : no acute intra cranial abnormality -hypertension: Resume home medication amlodipine -history of CVA: continue aspirin 81 mg p.o. daily -review CBC, CMP, urinalysis, chest x-ray. -DVT prophylaxis with enoxaparin Goals of care , discussed greater than 24 m, full code status. As per medical record patient resides at [facility], pending placement Plan discussed with Dr Robert Plan discussed with: Patient, Other (RN) My Orders My Orders Orders - MARILU MARTINEZ Procedure Category Date Status Time Hydromorphone PHA 09/19/24 In Process Injection (Dilaudid 22:00 Amlodipine Tablet PHA 09/21/24 In Process (Norvasc Tablet) 10:00 Losartan Tablet PHA 09/21/24 In Process (Cozaar Tablet) 10:00 * Commercial Appraiser CONS 09/20/24 Transmitted Consult Dietary Evaluation Review Recommendations by RD: Protein Supplementation Comments: 1) Initiate Pro-Stat @ 30 mL qd 2) Initaite Ensure Enlive bid. Encourage optimal PO intake 3) Initiate vitamin C @ 500 mg bid and zinc sulfate @ 220 mg qd for 7-10 days 4) Follow-up with pulmonology and cardiology 4) Continue to monitor I&O, labs, and skin integrity Expected Outcomes/Goals: 1) appetite and labs to improve 2) wound to improve 3) follow-up in 3-5 days Date of Service: September 20, 2024 Billing Provider: YAYA CHRISTIANSON MD Common Visit Codes: [id number] INP/OBS CARE(HIGH) MARILU MARTINEZ RESIDENT September 20, 2024 17:05 YAYA CHRISTIANSON MD September 27, 2024 22:33
[2024-09-20] MEDS: amLODIPine BESYLATE 5 MG TAB PO ONE (18:04)
[2024-09-20] MEDS: HYDROmorphone HCL 2 MG/ML VL/or syr IV PRN (18:31)
[2024-09-20] MEDS: CARVEDILOL 3.125 MG TAB PO SCH (21:53)
[2024-09-21] VITALS (9 sets, daily range): BP systolic 103–149; BP diastolic 58–68; PULSE 64–99; RESP 16–18; TEMP 97.7–98.5; O2SAT 94–100
[2024-09-21 07:22] LABS: Anion Gap 10 (5-15); Carbon Dioxide 26 mmol/L (20-31); Chloride 107 mmol/L (98-107); Potassium 3.9 mmol/L (3.5-5.1); Sodium 143 mmol/L (136-145)
[2024-09-21 07:23] LABS: Calcium 9.4 mg/dL (8.7-10.4)
[2024-09-21 07:29] LABS: BUN/Creatinine Ratio 12.5 (10.0-20.0); Blood Urea Nitrogen 11 mg/dL (9-23)
[2024-09-21 07:32] LABS: Glucose 108 mg/dL (74-106)
[2024-09-21 08:20] LABS: Basophils # (auto) 0.1 10 ^3/uL (0-0.2); Basophils % (auto) 0.8 % (0.0-2.0); Eosinophils # (auto) 0.5 10 ^3/uL (0-0.8); Eosinophils % (auto) 5.3 % (0.0-7.0); Hematocrit 40.6 % (36.0-46.0); Hemoglobin 13.4 g/dL (12.2-16.2); Lymphocytes # (auto) 1.7 10 ^3/uL (0.4-5.4); Mean Corpuscular Hemoglobin 30.4 pg (28.0-32.0); Mean Corpuscular Hgb Conc. 33.1 g/dL (32.0-36.0); Mean Corpuscular Volume 91.8 fL (80.0-100.0); Monocytes # (auto) 0.7 10 ^3/uL (0-1.3); Monocytes % (auto) 7.4 % (0.0-12.0); Neutrophils # (auto) 6.9 10 ^3/uL (1.6-8.6); Neutrophils % (auto) 69.5 % (37.0-80.0); Nucleated Red Blood Cells % 0.1 %; Platelet Count (auto) 288 10^3/uL (140-450); Red Blood Cells 4.42 10^6/uL (4.0-5.20); Red Cell Distribution Width 13.3 % (11.8-14.3)
[2024-09-21] MEDS: amLODIPine BESYLATE 5 MG TAB PO SCH (09:00)
[2024-09-21] MEDS: LOSARTAN POTASSIUM 50 MG TAB PO SCH (09:00)
[2024-09-21] MEDS ORDERED: LOSARTAN POTASSIUM 50 MG TAB PO SCH ×2 (10:00)
[2024-09-21] MEDS: oxyCODONE ER 10 MG TAB PO ONE (14:10)
--- NOTE | 2024-09-21 20:23 | DVHPNRES ---
Progress Note Date Seen: September 21, 2024 Resident Creating Document: MARILU MARTINEZ RESIDENT Medical Necessity Reason Pt with a Central, PICC or Fol: No Subjective Review of Systems patient seen and examined at beside A/O X 4 reports back pain improved since yesterday 1 bowel movement today No abdominal Pain, nausea, vomiting No chest pain, shortness of breath Objective vital signs Vital Sign Date Time Temp Pulse Resp B/P (MAP) Pulse Ox O2 Delivery O2 Flow Rate FiO2 09/21/24 18:55 75 18 146/67 09/21/24 16:30 98.3 97 98.3 09/21/24 10:00 Nasal Cannula* 2 28 Total Intake and Output 09/20/24 09/20/24 09/21/24 15:00 23:00 07:00 Intake Total 50 ml Output Total 250 ml 225 ml Balance 50 ml -250 ml -225 ml medications Current Medications Medications Dose Ordered Sig/Manasa Route Start Time Stop Time Status Last Admin Dose Admin Ondansetron HCl 4 mg Q4HP PRN IV 09/16/24 19:45 Enoxaparin Sodium 30 mg DAILY SC 09/18/24 10:00 UNV Enoxaparin Sodium 40 mg DAILY SC 09/18/24 10:00 09/21/24 09:00 40 MG Aspirin 81 mg DAILY PO 09/18/24 10:00 09/21/24 09:01 81 MG Sertraline HCl 25 mg DAILY PO 09/18/24 10:00 09/21/24 09:01 25 MG Ergocalciferol 50,000 unit Q7D PO 09/18/24 08:30 09/18/24 08:50 50,000 UNIT Melatonin 5 mg HS PO 09/18/24 22:00 09/20/24 21:52 5 MG Amlodipine Besylate 10 mg DAILY PO 09/21/24 10:00 09/21/24 09:00 10 MG Hydromorphone HCl 0.5 mg Q6HP PRN IV 09/20/24 17:15 09/21/24 18:27 0.5 MG Losartan Potassium 50 mg DAILY PO 09/21/24 10:00 09/21/24 09:00 50 MG Carvedilol 3.125 mg Q12HR PO 09/20/24 22:00 09/21/24 09:04 3.125 MG Oxycodone HCl 10 mg Q12HR PO 09/21/24 22:00 Examination Constitutional: Patient is alert and oriented x4 and does not appear to be in any acute distress Gen - no pallor, no icterus, no cyanosis, no clubbing, no LAD, no edema . Skin - Patients skin is warm and dry.. HEENT - normocephalic, atraumatic, moist mucous membranes. Neck - full ROM, no LAD, no JVD Pulmonary - B/L equal breath sounds. no crackles , no wheezing cardiovascular - regular S1,S2 heard. no murmurs heard. GI - soft, nontender abdomen. no hepatospleenomegaly. Bowel sounds normoactive Neurological - left upper and lower extremity strength 4/5, right lower extremity strength 4/5, right upper extremity strength 3/5 no facial droop, normal speech, no tremor, no sensory deficiets. laboratory and microbiology Laboratory Tests 09/21/24 06:13 Test 09/21/24 06:13 Range/Units Serum Glucose 108 H 74-106 mg/dL Microbiology Date/Time Source Procedure Growth Status 09/17/24 18:32 Nose MRSA Screen - Final Complete 09/16/24 19:00 Voided Urine Urine Culture - Final Complete 09/16/24 16:53 Blood Blood Culture - Final NO GROWTH AFTER 5 DAYS OF INCUBATION. Complete Problem List/Assessment/Plan Problem List/Assessment/Plan UTI Acute metabolic encephalopathy due to above, resolving Acute on chronic hypoxic respiratory failure COPD, not exacerbation Diabetes mellitus type 2 Hypertension Deep tissue injury History of CVA, right-sided residual weakness Plan/recommendation -IV antibiotic ceftriaxone, culture negative till now -chest x-ray no consolidation, continue nasal cannula 2 L, p.r.n. albuterol/ipratropium bromide nebulization if needed -head CT : no acute intra cranial abnormality -hypertension: Amlodipine, losartan, carvedilol -history of CVA: continue aspirin 81 mg p.o. daily -review CBC, CMP, urinalysis, chest x-ray. -DVT prophylaxis with enoxaparin Goals of care , discussed greater than 24 m, full code status. As per medical record patient resides at [facility], pending placement Plan discussed with Dr Christianson Plan discussed with: Patient, Other (RN (aguilar)) My Orders My Orders Orders - MARILU MARTINEZ RESIDENT Procedure Category Date Status Time Oxycodone Er Tablet PHA 09/21/24 In Process (Oxycontin Er Tablet 22:00 Dietary Evaluation Review Recommendations by RD: Protein Supplementation Comments: 1) Initiate Pro-Stat @ 30 mL qd 2) Initaite Ensure Enlive bid. Encourage optimal PO intake 3) Initiate vitamin C @ 500 mg bid and zinc sulfate @ 220 mg qd for 7-10 days 4) Follow-up with pulmonology and cardiology 4) Continue to monitor I&O, labs, and skin integrity Expected Outcomes/Goals: 1) appetite and labs to improve 2) wound to improve 3) follow-up in 3-5 days Date of Service: September 21, 2024 Billing Provider: YAYA CHRISTIANSON MD Common Visit Codes: [id number] INP/OBS CARE(HIGH) MARILU MARTINEZ RESIDENT September 21, 2024 20:23 YAYA CHRISTIANSON MD September 28, 2024 08:53
[2024-09-21] MEDS: oxyCODONE ER 10 MG TAB PO SCH (21:10)
[2024-09-22] VITALS (8 sets, daily range): BP systolic 100–141; BP diastolic 49–59; PULSE 68–73; RESP 15–20; TEMP 97.9–98.6; O2SAT 91–98
[2024-09-22] MEDS ORDERED: ASPI-543 PO (11:21)
[2024-09-22] MEDS ORDERED: CARV-214 PO (11:21)
[2024-09-22] MEDS ORDERED: SERT25TA84 PO (11:21)
[2024-09-22] MEDS ORDERED: ERGO1CAP23 PO (11:21)
[2024-09-22] MEDS ORDERED: AML5T PO (11:21)
[2024-09-22] MEDS ORDERED: LOSA-534 PO (11:21)
[2024-09-22] MEDS ORDERED: MELA5TAB16 PO (11:21)
--- NOTE | 2024-09-22 21:21 | DVHDSRES ---
Discharge Summary Date of Admission Resident Creating Document: MARILU MARTINEZ RESIDENT September 16, 2024 at 19:42 Date of Discharge: September 22, 2024 Admitting Diagnosis Acute hypoxic respiratory failure Acute encephalopathy metabolic acute Buttocks and thigh wound likely early pressure injury/cellulitis acute History of CVA with right-sided weakness Wounds: Buttock wounds from patient being bed ridden Labs/Diagnostic Data: Laboratory Results Test 09/21/24 06:13 09/20/24 10:52 09/20/24 10:20 09/20/24 06:04 White Blood Count 10.0 10^3/uL (4.4-10.8) Red Blood Count 4.42 10^6/uL (4.0-5.20) Hemoglobin 13.4 g/dL (12.2-16.2) Hematocrit 40.6 % (36.0-46.0) Mean Corpuscular Volume 91.8 fL (80.0-100.0) Mean Corpuscular Hemoglobin 30.4 pg (28.0-32.0) Mean Corpuscular Hemoglobin Concent 33.1 g/dL (32.0-36.0) Red Cell Distribution Width 13.3 % (11.8-14.3) Platelet Count 288 10^3/uL (140-450) Mean Platelet Volume 7.9 fL (6.9-10.8) Neutrophils (%) (Auto) 69.5 % (37.0-80.0) Lymphocytes (%) (Auto) 17.0 % (10.0-50.0) Monocytes (%) (Auto) 7.4 % (0.0-12.0) Eosinophils (%) (Auto) 5.3 % (0.0-7.0) Basophils (%) (Auto) 0.8 % (0.0-2.0) Neutrophils # (Auto) 6.9 10 ^3/uL (1.6-8.6) Lymphocytes # (Auto) 1.7 10 ^3/uL (0.4-5.4) Monocytes # (Auto) 0.7 10 ^3/uL (0-1.3) Eosinophils # (Auto) 0.5 10 ^3/uL (0-0.8) Basophils # (Auto) 0.1 10 ^3/uL (0-0.2) Nucleated Red Blood Cells 0.1 % Sodium Level 143 mmol/L (136-145) Potassium Level 3.9 mmol/L (3.5-5.1) Chloride Level 107 mmol/L (98-107) Carbon Dioxide Level 26 mmol/L (20-31) Anion Gap 10 (5-15) Blood Urea Nitrogen 11 mg/dL (9-23) Creatinine 0.88 mg/dL (0.550-1.02) Glomerular Filtration Rate Calc 69 mL/min (>90) BUN/Creatinine Ratio 12.5 (10.0-20.0) Serum Glucose 108 mg/dL (74-106) Calcium Level 9.4 mg/dL (8.7-10.4) POC Glucose 110 mg/dl (70-106) SARS-CoV-2 Antigen (Rapid) Negative (NEGATIVE) Magnesium Level 1.8 mg/dL (1.6-2.6) Test 09/17/24 17:20 09/17/24 04:32 09/16/24 19:00 09/16/24 16:53 Vitamin B12 Level 335 pg/mL (211-911) Vitamin D 25-Hydroxy 24.6 ng/mL (30.0-100) Folic Acid 9.61 ng/mL (>5.38) Total Bilirubin 0.3 mg/dL (0.2-1.0) Aspartate Amino Transferase (AST) < 8 U/L (13-40) Alanine Aminotransferase (ALT) < 9 U/L (7-40) Alkaline Phosphatase 60 U/L (46-116) Total Protein 6.1 g/dL (5.7-8.2) Albumin 3.4 g/dL (3.2-4.8) Thyroid Stimulating Hormone (TSH) 0.64 uIU/mL (0.55-4.78) Random Vancomycin Level 37.7 ug/mL (5-10) Urine Color Yellow (Yellow) Urine Clarity Turbid (Clear) Urine pH 5.5 (5.0-9.0) Urine Specific [place] 1.026 (1.001-1.035) Urine Protein Trace (Negative) Urine Ketones Negative (Negative) Urine Blood Negative /uL (Negative) Urine Nitrite Negative (Negative) Urine Bilirubin Negative (Negative) Urine Urobilinogen Normal mg/dL (Negative) Urine Leukocyte Esterase 3+ /uL (Negative) Urine RBC 6 /hpf (0 - 4) Urine Microscopic WBC 86 /HPF (0-5) Urine Squamous Epithelial Cells Few /hpf (<5) Urine Bacteria Many /hpf (None Seen) Urine Hyaline Casts Few /lpf (0 - 2) Urine Glucose Normal mg/dL (Normal) D-Dimer, Quantitative 0.69 mg/L FEU (0.0-0.49) Lactic Acid Level 0.8 mmol/L (0.4-2.0) Other Laboratory Tests 09/21/24 06:13 Brief Hx & Hospital Course: HPI 74-year-old female with a 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 Her surgical history includes vascular surgery and hernia repair. She resides at [facility] and was brought to the ED by paramedics due to increased confusion and a decline in her ability to perform activities of daily living over the past two days. Staff at the facility noted hypoxia, prompting transfer. On arrival, the patient was placed on 2 L nasal cannula. She was alert but disoriented during the encounter, with limited recall. She denied chest pain or dyspnea when able to respond. Facility staff reported the presence of a buttocks and upper thigh wound, which was confirmed on physical exam. Initial labs showed a creatinine of 1.17 with BUN 29, unremarkable CBC, and lactate within normal limits. Chest X- ray did not reveal acute pathology. Urinalysis is pending. She will be admitted for further workup of acute encephalopathy and hypoxia Brief hospital course Patient admitted to the hospital with a chief complaint of altered level of consciousness from a nursing care facility where she was living for a long time. Urinalysis showed UTI following which urine culture and blood cultures were sent but urine culture showed growth of mixed gorge which can be contamination and patient did not have any fever or leukocytosis or tachycardia while in the hospital but she was empirically treated with antibiotics. Blood cultures were also negative after 5 days of incubation. Patient did have sacral wounds for which wound care was given. Patient's mental status returned to baseline and she was alert and oriented x4. Patient did have hypotension in the hospital she was started on medications with losartan, amlodipine and carvedilol which has been sent in the medication list to a long-term facility. Physical therapy rehabilitation was done in the hospital. Patient is being discharged in stable condition to long-term facility for physical therapy rehabilitation. Consults/Reason for consult Wound care consult for reports of the bilateral buttock Operations or Procedures none Condition at Discharge: Good Final Diagnosis/Problems List UTI Acute metabolic encephalopathy due to above, resolving Acute on chronic hypoxic respiratory failure COPD, not exacerbation Diabetes mellitus type 2 Hypertension Deep tissue injury History of CVA, right-sided residual weakness Discharge Disposition: [facility]sp Facility Discharge Instruct/Medications Diet: Cardiac 2g Na,low cholest Activity: No Restrictions, As Tolerated Follow Up/Referral: Follow up with the PCP in one week Medications: as per EMR Discharge Statement: "Patient was advised to return to the ER or call 911 if any headaches, dizziness, shortness of breath, chest pain, abdominal pain, bleeding, fevers, or worsening of medical condition. Patient was counseled about treatment plan, medications, possible side effects, patientverbalized understanding. All questions were answered to the best of my ability. This discharge took greater then 30 minutes in planning, reviewing documentation, counseling the patient, and discussing with other team members." ASSESSMENT ASSESSMENT Assessment UTI Acute metabolic encephalopathy due to above, resolving Acute on chronic hypoxic respiratory failure COPD, not exacerbation Diabetes mellitus type 2 Hypertension Deep tissue injury History of CVA, right-sided residual weakness Date of Service: September 22, 2024 Billing Provider: YAYA CHRISTIANSON MD Common Visit Codes: 42535-KRO/OBS DISCH DAY >30min MARILU MARTINEZ RESIDENT September 22, 2024 21:21 YAYA CHRISTIANSON MD September 28, 2024 09:06
== END 2024-09-22 19:50 | DRG 689 ==
LOC: EDSEX 16:11 → EDBD 16:11 → ER 16:18 → OVERFLOW 19:42 → CENTRAL 19:47
PROVIDERS: ADMIT Student in an Organized Health Care Education/Training Program; ATTEND Emergency Medicine
DX: N30.00 Acute cystitis without hematuria (principal); G93.41 Metabolic encephalopathy; J96.21 Acute and chronic respiratory failure with hypoxia; I69.351 Hemiplegia and hemiparesis following cerebral infarction affecting right dominant side; I10 Essential (primary) hypertension; E11.9 Type 2 diabetes mellitus without complications; J44.9 Chronic obstructive pulmonary disease, unspecified; S30.0XXA Contusion of lower back and pelvis, initial encounter; Z20.822 Contact with and (suspected) exposure to COVID-19; X58.XXXA Exposure to other specified factors, initial encounter; Y93.89 Activity, other specified; Y99.8 Other external cause status; Y92.89 Other specified places as the place of occurrence of the external cause; Z74.01 Bed confinement status
CPT/HCPCS: 36415; 70450; 71045; 72131; 80048; 80053; 80202; 81001; 82306; 82607; 82746; 82962; 83605; 83735; 84443; 85025; 85379; 87040; 87081; 87086; 87426; 93005; 97110; 97163; 97530; G0378; J2543